=== PATIENT | female | born 1985 | race Two or more races ===

== ENCOUNTER → 2017-03-04 | Outpatient (CLI) | payer OTHER | LOC: FIMAGING 16:08 | PROVIDERS: ATTEND Physician Assistant | DX: M53.3 Sacrococcygeal disorders, not elsewhere classified (principal) ==

== ENCOUNTER → 2017-05-21 | Outpatient (CLI) | payer OTHER | LOC: FIMAGING 11:44 | PROVIDERS: ATTEND Physician Assistant | DX: Z13.820 Encounter for screening for osteoporosis (principal); N83.9 Noninflammatory disorder of ovary, fallopian tube and broad ligament, unspecified; D25.9 Leiomyoma of uterus, unspecified; Z80.3 Family history of malignant neoplasm of breast ==

== ENCOUNTER 2017-12-07 05:33 | Observation (INO) | payer OTHER ==
--- NOTE | 2017-11-23 18:39 | GHP ---
DATE OF ADMISSION: 12/07/2017 DATE OF PLANNED PROCEDURE: 12/07/2017 PLANNED PROCEDURE: Total laparoscopic hysterectomy with bilateral salpingectomy and cystoscopy. PREOPERATIVE DIAGNOSIS: Symptomatic uterine fibroids. The patient is a 32-year-old 0 who be duane having increased pelvic pressure in her abdominal pelvis last year. The pain lasted continuously for 2 months and then has been intermittent since that time. The patient was having tailbone and lo w back issues and had an MRI which showed an enlarged fibroid uterus. The patient has had intermitte nt pelvic pain and pressure since then. Her periods are regular and not bad. The patient had always wanted to have children; however, she has had a long history of infertility and had an evaluation wi th a tricot knitter, and they did not continue further evaluation. We had a long discu ssion about management options of myomectomy with the tricot knitter versus a total lap aroscopic hysterectomy, versus expected management. The patient is requesting definitive therapy wit h a total laparoscopic hysterectomy with bilateral salpingectomy. She is aware that this means that she will not be able to carry a baby herself. 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 The patient has been properly consented for MEDICAL HISTORY: Significant for eye issues requiring multiple vitrectomies and replacement of the v itreous. She has not had any issues since 2004. She has symptomatic fibroids and a history of infer tility. No other medical problems. MEDICATIONS: None. SURGICAL HISTORY: Vitrectomy x2. ALLERGIES: No known drug allergies. SOCIAL HISTORY: The patient is . She denies tobacco, alcohol, or drug use. 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 FAMILY MEDICAL HISTORY: Noncontributory. 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 Periods every 30 days, lasting 7-8 days. She is 0. She h ad a history of an abnormal Pap smear years ago. Colposcopy was negative and a repeat Pap smear have all been negative. She denies any history of any sexually transmitted diseases. REVIEW OF SYSTEMS: Ten-point review of systems is negative with the exception of the above-mentioned pertinent positives. She has positive pelvic pressure and intermittent abdominal and pelvic pain. PHYSICAL EXAMINATION: VITAL SIGNS: Stable. GENERAL APPEARANCE: Alert and oriented x3. PSYCH: Ap propriate affect. MUSCULOSKELETAL: Grossly intact. NEURO: Grossly intact. CARDIAC: Heart rate r egular, regular. LUNGS: Clear to auscultation bilaterally. ABDOMEN: Soft, nondistended. No organ omegaly is noted with the exception of a palpable fibroid below her umbilicus. PELVIC: Reveals an e nlarged 15-week size mobile uterus with a very posterior cervix. IMAGING: Pelvic ultrasound was described above. ASSESSMENT AND PLAN: A 32-year-old 0 with symptomatic fibroid uterus, requesting definitive therapy with a total laparoscopic hysterectomy with bilateral salpingectomy and cystoscopy. Risks an d benefits have been extensively reviewed with the patient and her , and consent has been obta ined. Risks of bleeding; infection; damage to the bowel, bladder, major blood vessels; risk of needi ng to perform an open surgery; risk of needing to do additional procedures was discussed. /[id number]/MODL
[2017-12-07] MEDS ORDERED: ceFAZolin 2 GM/DEXTROSE 100 ML IV ONE (05:40)
[2017-12-07] MEDS ORDERED: LR 1,000 ML IV ONE (05:42)
[2017-12-07] MEDS ORDERED: PHENAZOPYRIDINE HCL 200 MG TAB ONE (05:57)
[2017-12-07] MEDS ORDERED: PHENAZOPYRIDINE HCL 100 MG TAB PO ONE ×2 (06:00→06:30)
[2017-12-07] MEDS ORDERED: BUPIVACAINE 0.5% 30 ML SDV ONE (06:15)
[2017-12-07] MEDS ORDERED: MIDAZOLAM 2 MG/2 ML VIAL IVP ONE (07:02)
--- NOTE | 2017-12-07 07:06 | PDANEPAE ---
ANE History of Present Illness symptomatic fibroids s/f laparoscopic ANNIE/BSO ANE Past Medical History - Cardiovascular History Hx Hypertension: No Hx Arrhythmias: No Hx Chest Pain: No Hx Coronary Artery / Peripheral Vascular Disease: No Hx CHF / Valvular Disease: No Hx Palpitations: No - Pulmonary History Hx COPD: No Hx Asthma/Reactive Airway Disease: No Hx Recent Upper Respiratory Infection: No Hx Oxygen in Use at Home: No Hx Sleep Apnea: No Sleep Apnea Screening Result - Last Documented: Negative Pulmonary History Comment: her PCP has told her she might have JEFFY as she has on occasion woken herself up gasping for air - no testing ever done - Neurologic History Hx Cerebrovascular Accident: No Hx Seizures: No Hx Dementia: No - Endocrine History Hx Diabetes: No - Renal History Hx Renal Disorders: No - Liver History Hx Hepatic Disorders: No - Neurological & Psychiatric Hx Hx Neurological and Psychiatric Disorders: No - Cancer History Hx Cancer: No - Congenital Disorder History Hx Congenital Disorders: No - GI History Hx Gastrointestinal Disorders: No Gastrointestinal History Comment: occasional heartburn - Other Health History Other Health History: has 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 wears glasses. uterine fibroids. has frequent tailbone pain - going to PT for - Chronic Pain History Chronic Pain: No - Surgical History Prior Surgeries: eye surgery, 2004, 2006. cataract surgery, 2007. tubes in ears as a child. laser eye surgery, 1998 ANE Review of Systems Review of Systems: - Exercise capacity METS (RN): 4 METS ANE Patient History - Allergies Allergies/Adverse Reactions: No Known Allergies Allergy (Verified 11/16/17 16:57) - Home Medications Home medications: home medication list seen and reviewed Home Medications: NK [No Known Home Meds] 11/11/17 [Last Taken Unknown] - NPO status NPO Status: no food or drink >8 hours (meds with sips today) NPO Since - Liquids (Date): 12/07/17 NPO Since - Liquids (Time): 03:45 (H20 at 0400) NPO Since - Solids (Date): 12/06/17 NPO Since - Solids (Time): 19:00 - Smoking Hx Smoking Status: Never smoked - Family Anes Hx Family Hx Anesthesia Complications: none ANE Labs/Vital Signs - Labs - CBC WBC: reviewed and okay - Vital Signs Blood Pressure: 117/71 Heart Rate: 55 Respiratory Rate: 16 O2 Sat (%): 97 Height: 172.72 cm Weight: 68.039 kg ANE Physical Exam - Airway Neck exam: FROM Mallampati Score: Class 1 Mouth exam: normal dental/mouth exam - Pulmonary Pulmonary: no respiratory distress - Cardiovascular Cardiovascular: regular rate and rhythym - ASA Status ASA Status: I ANE Anesthesia Plan Anesthesia Plan: general endotracheal anesthesia
--- NOTE | 2017-12-07 07:06 | PDHPUP ---
History & Physical Update H&P update statement: This history and physical update is based on an assessment of the patient which was completed after admission or registration (within 24 hours), but prior to the surgery/procedure. H&P update: H&P reviewed & patient examined, no change in patient's condition since H&P completed
[2017-12-07] MEDS ORDERED: DEXAMETHASONE 4 MG/ML VIAL ONE ×2 (07:18)
[2017-12-07] MEDS ORDERED: fentaNYL 100 MCG/2 ML INJ ONE ×2 (07:18→10:10)
[2017-12-07] MEDS ORDERED: PROPOFOL/EMULSION 500 MG/50 ML BOTTLE IV ONE (07:18)
[2017-12-07] MEDS ORDERED: LIDOCAINE 2% 100 MG/5 ML SYR ONE (07:18)
[2017-12-07] MEDS ORDERED: ONDANSETRON 4 MG/2 ML VIAL ONE (07:18)
[2017-12-07] MEDS ORDERED: LIDOCAINE HCL 160 MG/4 ML LTA KIT TP ONE (07:21)
[2017-12-07] MEDS ORDERED: GLYCOPYRROLATE 0.2 MG/1 ML VIAL ONE ×4 (09:07→09:19)
[2017-12-07] MEDS ORDERED: NEOSTIGMINE METHYLSULFATE 5 MG/5 ML SYR ONE (09:07)
[2017-12-07] MEDS ORDERED: KETOROLAC 30 MG/1 ML SDV ONE (09:08)
[2017-12-07] MEDS ORDERED: NALOXONE HCL 0.4 MG/ML INJ IVP PRN (09:21)
[2017-12-07] MEDS ORDERED: MEPERIDINE 25 MG/0.5 ML AMP IVP PRN (09:21)
[2017-12-07] MEDS ORDERED: oxyCODONE IR 5 MG TAB PO PRN (09:21)
[2017-12-07] MEDS ORDERED: ACETAMINOPHEN 500 MG TAB PO PRN (09:21)
[2017-12-07] MEDS ORDERED: PHENYLEPHRINE HCL 100 MCG/ML SYR IVP PRN (09:21)
[2017-12-07] MEDS ORDERED: LABETALOL HCL 5 MG/ML 20 ML MDV IVP PRN (09:21)
[2017-12-07] MEDS ORDERED: PROMETHAZINE HCL 25 MG/ML INJ IVP PRN (09:21)
[2017-12-07] MEDS ORDERED: ONDANSETRON 4 MG/2 ML VIAL IVP PRN ×2 (09:21→09:39)
[2017-12-07] MEDS ORDERED: LR 500 ML IV PRN (09:21)
[2017-12-07] MEDS ORDERED: HYDROCODONE/APAP 5/325 TAB PO PRN (09:21)
[2017-12-07] MEDS ORDERED: METOCLOPRAMIDE 10 MG/2 ML VIAL IVP PRN (09:21)
[2017-12-07] MEDS ORDERED: ALBUTEROL 3 ML DEYVIAL IH PRN (09:21)
[2017-12-07] MEDS ORDERED: DEXAMETHASONE 4 MG/ML VIAL IVP PRN (09:21)
[2017-12-07] MEDS ORDERED: MAGNESIUM HYDROXIDE 30 ML UDCUP PO PRN (09:39)
[2017-12-07] MEDS ORDERED: BISACODYL 10 MG SUPP PR PRN (09:39)
[2017-12-07] MEDS ORDERED: POLYETHYLENE GLYCOL 3350 17 GM PKT PO PRN (09:39)
[2017-12-07] MEDS ORDERED: LACTULOSE 20 GM/30 ML UDCUP PO PRN (09:39)
[2017-12-07] MEDS ORDERED: MEPERIDINE 25 MG/0.5 ML AMP ONE (09:46)
[2017-12-07] MEDS ORDERED: LR 1,000 ML IV SCH (10:00)
[2017-12-07] MEDS: fentaNYL 100 MCG/2 ML INJ IVP PRN ×2 (10:14→10:23)
--- NOTE | 2017-12-07 11:15 | GOP ---
DATE OF OPERATION: 12/07/2017 SURGEON: Kaela Lerner DO CELL ATTENDANT: Shady Rojo MD PREOPERATIVE DIAGNOSIS: Symptomatic uterine fibroids. POSTOPERATIVE DIAGNOSIS: Symptomatic uterine fibroids. PROCEDURE PERFORMED: Total laparoscopic hysterectomy with bilateral salpingectomy and cystoscopy, re pair of the perineum. FINDINGS: Surgical findings: Enlarged mobile uterus. Laparoscopic findings: Mobile uterus with large pedunculated fibroid off the fundus. Normal ovaries and tubes. Bilateral ureteral jets noted on cystoscopy following procedure. SPECIMENS: Bilateral fallopian tubes, uterus, cervix, fibroids. ESTIMATED BLOOD LOSS: 200 cc. INDICATIONS: The patient is a 32-year-old, 0 who has had progressively worsening pelvic pres sure. She had an ultrasound done, which showed an enlarged fibroid uterus with a large pedunculated uterus. She and her have decided not to have any children and would like to proceed with a t otal laparoscopic hysterectomy. Risks and benefits of the procedure have been reviewed with the saturnino ent and the patient has been properly consented. DESCRIPTION OF PROCEDURE: Patient was taken to the operating room with intravenous fluids in place. She was then placed on the operating room table in a dorsal supine position, where general anesthesi a was obtained. She was then repositioned into the dorsal lithotomy position with the Yellofin stirr ups and prepped and draped in normal sterile fashion. Exam under anesthesia revealed a mobile, well suspended uterus, which was enlarged. A speculum was t hen placed in the patient's vagina. A single-tooth tenaculum was used to grasp the anterior lip of t he cervix. The cervix was then sounded to 9.5 cm. The ROGERIO uterine manipulator was then assembled w ith the 8 cm tip and the large cup. It was introduced without difficulty and was able to mobilize th e uterus. A Allan catheter was already in place. Attention was then turned to the patient's abdomen, where a 5 mm skin incision was then made in the p atient's umbilicus after being injected with local anesthesia. A 5 mm trocar was then advanced into the patient's abdomen after towel clamps were used to tent up the abdominal wall. The abdomen was th en insufflated with CO2 gas until an adequate pneumoperitoneum was achieved. The area underneath the trocar insertion site was found to be unremarkable. An enlarged fibroid uterus with a pedunculated fibroid was noted. A 5 mm skin incision was made in the patient's right lower quadrant and it was injected with local. After being injected with local, a 5 mm trocar was then advanced into the patient's abdomen under dir ect visualization. A 10 mm skin incision was then made in the patient's left lower quadrant and 10 m m trocar was advanced into the patient's abdomen under direct visualization. The uterus was easily mobilized and the anatomy was assessed. There was multiple fibroids noted with in the uterus. Upper abdomen was unremarkable. Appendix was unremarkable. The ovaries and tubes we re unremarkable. The cup was easily visualized. The large pedunculated fibroid off the patient's up per right fundus had a thick stalk. The LigaSure was then used to clamp, cauterize, and transect the pedicle, and the fibroid was freed from the pedicle. It was then placed in the upper abdomen. The left utero-ovarian ligament was then clamped, cauterized, and transected. The left salpingectomy was performed. The left infundibulopelvic ligament was then clamped, cauterized, and transected. The u tero-ovarian ligament was clamped, cauterized, and transected. The anterior and posterior leaflet of the broad ligament were clamped, cauterized, and transected. The bladder flap was created anteriorl y. The uterine arteries were then skeletonized and clamped, cauterized, and transected. The same pr ocedure was performed on the contralateral site without difficulty. The colpotomy was then performed after the bladder had been dissected well off the lower uterine segm ent and the colpotomy ring. The pneumo occluder balloon was inflated prior to doing this. The uteru s was then withdrawn through the vagina and handed off to the specimen table. The pedunculated fibro id, which had been amputated was then handed down to the vagina, and a single-tooth tenaculum was use d to grasp the fibroid and was then withdrawn through the vagina and handed off the table. A glove s tuffed with a Ray-Sarai was then inserted into the vagina and the vaginal cuff was closed incorporating the peritoneum in a running fashion with a V-Loc suture. Hemostasis was assured. Bilateral ureters were noted to be peristalsing following that. The sidewalls were evaluated and fou nd to be hemostatic. The vaginal cuff was found to be hemostatic. The upper abdomen again was explo red and found to be unremarkable. The fascial closure device was then used to close the fascia with an 0 Vicryl stitch under direct visualization. The CO2 gas was expressed from the patient's abdomen and the remainder of the trocars were removed. The skin was then closed with 4-0 Monocryl in a subcu ticular fashion. A cystoscopy was then performed. Bilateral ureteral jets were noted to be flowing. A second-degree laceration was then noted in the vagina, which was closed with 3-0 Vicryl in a runnin g fashion, and a small additional laceration was noted, which was closed with 4-0 Vicryl in a running fashion. Speculum exam was performed. The vaginal cuff was noted to be intact. Sponge, lap, needl e count was correct x2. The patient was then repositioned into the supine position where she was eas constance awakened from anesthesia. She was then transported to the recovery room in stable condition. /[id number]/MODL
[2017-12-07] MEDS: HYDROCODONE/APAP 5/325 TAB PO PRN ×4 (14:04→22:33)
[2017-12-07] MEDS: KETOROLAC 30 MG/1 ML SDV IVP SCH ×2 (15:15→20:47)
--- NOTE | 2017-12-07 16:55 | SOAPPROG ---
SOAP Progress Note Assessment/Plan: Assessment: pod# 0 s/p TLH bs for symptomatic fibroids uncomplicated post operative course increase activity 12/07/17 16:53 Subjective: patient is doing well. pain is well controlled. minimal vaginal bleeding. voiding without difficulty. ambulated to the bathroom. got queezy but recovered well. discussed surgery and findings. ordering food. discussed plan for discharge tomorrow. Objective: Vital Signs Temp Pulse Resp BP Pulse Ox 36.1 C 67 17 100/68 99 12/07/17 14:15 12/07/17 14:15 12/07/17 14:15 12/07/17 14:15 12/07/17 14:15 12/06/17 12/07/17 12/08/17 05:59 05:59 05:59 Intake Total 1450 Output Total 525 Balance 925 Physical Exam - Physical Exam General Appearance: WD/WN Respiratory: chest non-tender, lungs clear, normal breath sounds Cardiac/Chest: normal peripheral pulses, regular rate, rhythm Abdomen: normal bowel sounds, non-tender, soft Skin: normal color, warm/dry, other (incicions covered) Lymphatic: no adenopathy Extremities: normal range of motion, non-tender, normal inspection, normal capillary refill Neuro/Psych: no motor/sensory deficits, alert, normal mood/affect ICD10 Worksheet Patient Problems: Problems Problem Status Onset Fibroids Acute
[2017-12-07] MEDS: SENNOSIDES/DOCUSATE SODIUM TAB PO SCH (20:50)
[2017-12-08] MEDS: KETOROLAC 30 MG/1 ML SDV IVP SCH (02:37)
[2017-12-08] MEDS: HYDROCODONE/APAP 5/325 TAB PO PRN ×2 (02:38→11:40)
--- NOTE | 2017-12-08 07:54 | SOAPPROG ---
SOAP Progress Note Assessment/Plan: Assessment: pod# 1 s/p TLH bs for symptomatic fibroids gas pain uncomplicated post operative course increase activity discharge instructions 12/08/17 07:52 Subjective: patient is doing well. passing gas. primary complaint is gas/shoulder pain which improves with positioning. hydrating well. tolerating diet. voiding without difficulty. minimal vaginal bleeding. surgery reviewed. discharge instructions reviewed. Objective: Vital Signs Temp Pulse Resp BP Pulse Ox 37.3 C 70 16 95/54 L 98 12/08/17 02:37 12/08/17 02:37 12/08/17 02:37 12/08/17 02:37 12/07/17 23:05 Laboratory Results 12/08/17 06:20 12/07/17 12/08/17 12/09/17 05:59 05:59 05:59 Intake Total 3800 Output Total 1875 Balance 1925 Physical Exam - Physical Exam General Appearance: WD/WN, alert, no apparent distress Neck: non-tender, full range of motion Respiratory: chest non-tender, lungs clear, normal breath sounds Cardiac/Chest: normal peripheral pulses, regular rate, rhythm Abdomen: normal bowel sounds, non-tender, soft Skin: normal color, warm/dry, other (incisions covered) Lymphatic: no adenopathy, axilla node tender (R) Extremities: normal range of motion, non-tender, normal inspection, normal capillary refill Neuro/Psych: no motor/sensory deficits, alert, normal mood/affect, oriented x 3 ICD10 Worksheet Patient Problems: Problems Problem Status Onset Fibroids Acute
[2017-12-08 08:40] VITALS: BP 96/54
[2017-12-08] MEDS: SENNOSIDES/DOCUSATE SODIUM TAB PO SCH ×2 (08:53→08:57)
[2017-12-08] MEDS ORDERED: IBUPROFEN 600 MG TAB PO SCH (09:41)
--- NOTE | 2017-12-08 14:37 | POSTANESTH ---
Post Anesthetic Evaluation Cardiovascular Status: Normal, Stable Respiratory Status: Normal, Stable Level of Consciousness/Mental Status: Can Participate in Eval Pain Control: Adequate, Prn Tx Ordered Nausea/Vomiting Control: Adequate, Prn Tx Ordered Complications Possibly Related to Anesthesia: None Noted
== END 2017-12-08 12:30 | disposition home or self-care (01) ==
LOC: F3E 05:33 → FOB 11:15
PROVIDERS: ADMIT Obstetrics & Gynecology; ATTEND Obstetrics & Gynecology
PROC: 0TJ98ZZ Inspection of Ureter, Via Natural or Artificial Opening Endoscopic (ICD-10-PCS; principal; 2017-12-07 07:15)
PROC: 0UTC4ZZ Resection of Cervix, Percutaneous Endoscopic Approach (ICD-10-PCS; principal; 2017-12-07 07:15)
PROC: 0UT94ZZ Resection of Uterus, Percutaneous Endoscopic Approach (ICD-10-PCS; principal; 2017-12-07 07:15)
PROC: 0UT74ZZ Resection of Bilateral Fallopian Tubes, Percutaneous Endoscopic Approach (ICD-10-PCS; principal; 2017-12-07 07:15)
DX: D25.2 Subserosal leiomyoma of uterus (principal); N80.0 Endometriosis of uterus
CPT/HCPCS: 57200; 58573; G0378; J0690; J1100; J1885; J2001; J2175; J2250; J2270; J2405; J2704; J2710; J3010